=== PATIENT | female | born 1990 | race Caucasian/White ===

== ENCOUNTER 2016-12-20 13:52 | Inpatient (IN) | payer OTHER ==
[2016-12-20 21:08] VITALS: BMI 38.2
[2016-12-20] MEDS ORDERED: Ibuprofen 800 MG TAB PO PRN (22:00)
[2016-12-20] MEDS ORDERED: LR / Pitocin 40 units/1000 ml 40 UNITS/1,000 ML BAG IV SCH (22:00)
[2016-12-20] MEDS ORDERED: Misoprostol 200 MCG TAB RC PRN (22:00)
[2016-12-20] MEDS ORDERED: Lidocaine 1% (PF) 30 ML VIAL SC PRN (22:00)
[2016-12-20] MEDS ORDERED: LR 500 ML/Oxytocin 10 units 500 ML IV SCH ×2 (22:00)
[2016-12-20] MEDS ORDERED: Lactated Ringer's 1,000 ML IV SCH (22:09)
[2016-12-20] MEDS: Lactated Ringer's 1,000 ML IV SCH (22:31)
[2016-12-20] MEDS: Misoprostol 100 MCG TAB VAG SCH (22:31)
[2016-12-20 23:04] LABS: Hematocrit 36.4 % (36.0-47.0); Mean Platelet Volume 8.5 fL (7.4-10.4); Red Blood Cell (RBC) Count 4.05 mill/uL (4.20-5.40); White Blood Cell (WBC) Count 14.2 thou/uL (4.8-10.8)
[2016-12-21] MEDS: Misoprostol 100 MCG TAB VAG SCH ×5 (02:37→20:34)
[2016-12-21] MEDS: Lactated Ringer's 1,000 ML IV SCH ×2 (04:16→12:43)
[2016-12-21] MEDS ORDERED: Fentanyl 4 mcg/Marc 0.1% Cadd 100 ML ONE (07:49)
[2016-12-21] MEDS ORDERED: ePHEDrine/0.9% NaCl/PF SYRINGE 50 mg/10 ml SLOW IVP PRN (08:25)
[2016-12-21] MEDS ORDERED: Eucerin (Mineral Oil/Petrolatum,White) 30 gm Jar TOP PRN (08:25)
[2016-12-21] MEDS ORDERED: Acetaminophen 325 MG TAB PO PRN (08:25)
[2016-12-21] MEDS ORDERED: Naloxone HCl 0.4 mg/ml Vial IVP PRN ×2 (08:25)
[2016-12-21] MEDS ORDERED: Ondansetron HCl/PF 4 MG/2 ML Vial IVP PRN (08:25)
[2016-12-21] MEDS ORDERED: Lactated Ringer's 500 ML IV PRN (08:25)
[2016-12-21] MEDS ORDERED: Promethazine HCl 25 MG/ML VIAL IM PRN (08:25)
[2016-12-21] MEDS ORDERED: diphenhydrAMINE 50 MG/ML VIAL IVP PRN (08:25)
[2016-12-21] MEDS ORDERED: Fentanyl 4mcg/Marcaine 0.1% Cassette 100 ML EPIDURAL SCH (08:30)
[2016-12-21] MEDS ORDERED: Communication Order-Pharmacy FS SCH (08:30)
[2016-12-21] MEDS ORDERED: LR / Pitocin 40 units/1000 ml 1,000 ML ONE (12:30)
[2016-12-21] MEDS ORDERED: Lidocaine 1% (PF) 30 ML VIAL ONE (12:30)
--- NOTE | 2016-12-21 15:24 | OP ---
DATE OF DELIVERY 12/21/2016 PREOPERATIVE DIAGNOSES: Term intrauterine , elective induction of labor. POSTOPERATIVE DIAGNOSES: Term intrauterine , elective induction of labor as well as a secon d degree perineal laceration. PROCEDURE PERFORMED: Normal spontaneous vaginal delivery and laceration repair. SURGEON: Mayela Gillette M.D. ANESTHESIA: Epidural. ESTIMATED BLOOD LOSS: 300 mL BRIEF DELIVERY SUMMARY: This is a 26-year-old G4, P0, at 39-1/7 weeks' gestation, who presented for elective induction of labor last night. She received Cytotec x2 with good response. She was start ed on Pitocin this morning and underwent artificial rupture of membranes. She progressed well to co mplete and pushing. She delivered a live female infant, head OA. Mouth and nares were bulb suction ed at the perineum. There was no nuchal cord. Shoulders and body easily followed. It is notable t hat the cord was quite short. The infant was placed on mother's abdomen. The umbilical cord was do ubly clamped and cut and cord blood was sent for analysis. Infant Apgars were 8 at 1 minute and 9 a t 5 minutes. There was a second degree perineal laceration which was repaired in standard running f ashion using 2-0 Vicryl suture under epidural anesthesia with excellent hemostasis. Placenta was de livered spontaneously and intact with a 3-vessel umbilical cord. This was followed by a gush of blo od. This resolved with bimanual massage and evacuation of clot. Pitocin was hanging in the IV. Mo m and baby were left with the nurse in excellent condition attempting to breast feed.
[2016-12-21] MEDS ORDERED: Lanolin Ointment 7 GM TUBE TOP PRN (16:26)
[2016-12-21] MEDS ORDERED: Preparation H Ointment 28 GM TUBE PR PRN (16:26)
[2016-12-21] MEDS ORDERED: Bisacodyl 10 MG SUPP PR PRN (16:26)
[2016-12-21] MEDS ORDERED: Milk Of Magnesia 30 ML UDCUP PO PRN (16:26)
[2016-12-21] MEDS ORDERED: LR / Pitocin 40 units/1000 ml 1,000 ML IV SCH (16:26)
[2016-12-21] MEDS: HYDROcodone/Acetaminophen 5/325 mg Tablet PO PRN ×2 (17:24→22:32)
[2016-12-21] MEDS: Ferrous Sulfate 325 MG TAB PO SCH (17:24)
[2016-12-21] MEDS: Docusate Calcium (SURFAK) 240 MG CAP PO SCH (21:53)
[2016-12-21] MEDS: Ibuprofen 800 MG TAB PO SCH (21:54)
[2016-12-21] MEDS ORDERED: Bupivacaine 0.25% HCL 30 ML VIAL ONE (22:31)
[2016-12-21] MEDS ORDERED: Benzocaine/Menthol 20-0.5% 60 ML CAN TOP PRN (22:47)
[2016-12-22] MEDS: Ibuprofen 800 MG TAB PO SCH ×3 (05:46→21:57)
[2016-12-22] MEDS: Docusate Calcium (SURFAK) 240 MG CAP PO SCH ×2 (08:22→21:57)
[2016-12-22] MEDS: Ferrous Sulfate 325 MG TAB PO SCH ×2 (08:22→17:54)
--- NOTE | 2016-12-22 11:44 | PRG ---
DATE OF SERVICE: 12/22/2016 PROGRESS NOTE PRIMARY INFORMATICIST: Dr. Mayela Gillette M.D. SUBJECTIVE: The patient is a 26-year-old female who is day 1, status post a term spontan eous vaginal delivery. The patient this morning reports she is ambulating well, tolerating p.o., vo iding on her own and having decreased lochia. PHYSICAL EXAMINATION: VITAL SIGNS: Today, blood pressure is 120/65, temperature is 97.6, pulse of 89, respiratory rate of 20. GENERAL: She appears to be in no acute distress. She is alert and oriented, and cooperative and pl easant to interact with. HEAD: Normocephalic, atraumatic. ABDOMEN: Fundus is firm at the umbilicus -1. EXTREMITIES: Nontender with symmetrical edema. ASSESSMENT AND PLAN: The patient is a 26-year-old female day 1, status post a term spont aneous vaginal delivery. We will continue care. Anticipate discharge tomorrow.
[2016-12-22] MEDS: HYDROcodone/Acetaminophen 5/325 mg Tablet PO PRN (12:21)
[2016-12-23] MEDS: Ibuprofen 800 MG TAB PO SCH ×2 (06:09→14:20)
[2016-12-23] MEDS: Ferrous Sulfate 325 MG TAB PO SCH (09:19)
[2016-12-23] MEDS: Docusate Calcium (SURFAK) 240 MG CAP PO SCH (09:24)
[2016-12-23 10:25] VITALS: BP 126/75; TEMP 97.7
--- NOTE | 2016-12-23 12:49 | DIS ---
DATE OF ADMISSION: 12/23/2016 DATE OF DISCHARGE: 12/23/2016 ( day #2). LOCATION: Room #332 on 3 [facility], [place]. This is a patient of Dr. Mayela Gillette. PRIMARY DIAGNOSIS: Status post vaginal delivery at 39 weeks. HOSPITAL COURSE: In brief, this is a patient of Dr. Mayela Gillette who is a 4, now para 1, who presented with induction of labor at patient's request. She underwent Cytotec and Pitocin and unde rwent spontaneous vaginal dated 12/21/2016 at 1410. I evaluated the patient on day #2, which was 12/23/2013. When I evaluated the patient, her vital signs showed a temperature range of 97.8-98.1, pulse was in the 70s-90s, respirations were 16-20 unlabored, blood pressure ranged fr om 130/76-123/61. On laboratory assessment, patient had an initial hepatitis B surface antigen and syphilis serologies that were both negative and hematocrit value initially on admission was 36.4. O n physical exam, there was no evidence of uterine tenderness, or abnormal vaginal bleeding. Abdomen was soft and nontender. ASSESSMENT: On postoperative day #2, the patient was clinically stable, status post vaginal deliver y and was cleared for discharge on 12/23/2016. DISCHARGE MEDICATIONS: Include Motrin 600 mg 1 p.o. q.6 hours p.r.n. pain. DISCHARGE INSTRUCTIONS: She was told to follow up with Dr. Mayela Gillette per routine care. There was no evidence of complication at the time of discharge.
== END 2016-12-23 17:00 | disposition home or self-care (01) | DRG 775 ==
LOC: L&D 20:13 → 3SW 12-21 16:31
PROVIDERS: ADMIT Family Medicine; ATTEND Family Medicine
PROC: 3E0P3VZ Introduction of Hormone into Female Reproductive, Percutaneous Approach (ICD-10-PCS; 2016-12-20)
PROC: 10907ZC Drainage of Amniotic Fluid, Therapeutic from Products of Conception, Via Natural or Artificial Opening (ICD-10-PCS; principal; 2016-12-21)
PROC: 10E0XZZ Delivery of Products of Conception, External Approach (ICD-10-PCS; 2016-12-21)
PROC: 0KQM0ZZ Repair Perineum Muscle, Open Approach (ICD-10-PCS; 2016-12-21)
PROC: 3E0P7VZ Introduction of Hormone into Female Reproductive, Via Natural or Artificial Opening (ICD-10-PCS; 2016-12-21)
DX: O70.1 Second degree perineal laceration during delivery (principal); Z37.0 Single live birth; Z3A.39 39 weeks gestation of pregnancy
CPT/HCPCS: 36415; 85027; 86780; 87340; J0595; J1200; J2001; J7120; S0020

== ENCOUNTER 2018-10-06 09:38 | Emergency (ER) | payer OTHER ==
[2018-10-06 10:10] LABS: #Basophils 0.1 thou/uL (0.0-0.2); #Eosinphils 0.3 thou/uL (0.0-0.7); #Lymphocytes 3.7 thou/uL (1.20-3.40); #Monocytes 0.7 thou/uL (0.11-0.59); %Basophils 1.1 % (0.0-1.0); %Eosinophils 2.7 % (0.0-10.0); %Lymphocytes 34.2 % (21.0-51.0); %Monocytes 6.3 % (0.0-10.0); %Neutrophils 55.6 % (42.0-75.0); Hemoglobin 12.8 g/dL (12.0-16.0); Mean Corpuscular HGB CONC 35.1 g/dL (32.0-36.0); Mean Corpuscular Hemoglobin 29.7 pg (27.0-31.0); Mean Corpuscular Volume 84.8 fL (78.0-98.0); Mean Platelet Volume 7.1 fL (7.4-10.4); Platelet Count 371 thou/uL (130-400); RBC Distribution Width 12.1 % (11.5-14.5); White Blood Cell (WBC) Count 10.8 thou/uL (4.8-10.8)
--- NOTE | 2018-10-06 11:53 | ULT ---
EXAM: Pelvic ultrasound: Transabdominal and endovaginal ultrasound pelvis performed. INDICATIONS: Early with vaginal spotting. History of miscarriage. COMPARISON: None. FINDINGS: A gestational sac is identified. A pole is identified. [place]-rump length indicates a 6 week 4 day gestational age. heart rate is recorded at 131 bpm. Yolk sac identified. A subtle hypoechoic area seen posterior to the gestational sac with Doppler is noted by the technolog ist. This may represent a small area of subchorionic hemorrhage but is not definitely confirmed. Right ovarian cyst is seen measuring 1.5 cm. Ovaries otherwise unremarkable. Color Doppler with spect ral analysis shows blood flow to both ovaries. IMPRESSION: 1. Viable intrauterine . Gestational age by ultrasound is 6 weeks 4 days. 2. Question small subchorionic hemorrhage as described above. Follow-up recommended.
== END 2018-10-06 12:05 | disposition home or self-care (01) ==
LOC: SCSER 09:38
DX: O20.0 Threatened abortion (principal); O99.341 Other mental disorders complicating pregnancy, first trimester; F41.9 Anxiety disorder, unspecified; Z79.899 Other long term (current) drug therapy; Z3A.01 Less than 8 weeks gestation of pregnancy
CPT/HCPCS: 76856; 84144; 84702; 85025

== ENCOUNTER 2019-05-12 04:10 | Inpatient (IN) | payer OTHER ==
[2019-05-12 04:53] VITALS: BMI 41.3
[2019-05-12] MEDS ORDERED: Fentanyl 4 mcg/Bup 0.1% Cadd 100 ML ONE (05:26)
[2019-05-12 05:36] LABS: Mean Corpuscular HGB CONC 33.1 g/dL (32.0-36.0); Mean Corpuscular Hemoglobin 28.3 pg (27.0-31.0); Mean Corpuscular Volume 85.5 fL (78.0-98.0); Mean Platelet Volume 8.7 fL (7.4-10.4); Platelet Count 289 thou/uL (130-400); RBC Distribution Width 13.6 % (11.5-14.5); Red Blood Cell (RBC) Count 4.61 mill/uL (4.20-5.40); White Blood Cell (WBC) Count 13.4 thou/uL (4.8-10.8)
[2019-05-12] MEDS ORDERED: Lidocaine 1% (PF) 30 ML VIAL ONE (06:14)
[2019-05-12] MEDS ORDERED: NS / Oxytocin 40 units/1000ml 1,000 ML ONE (06:14)
[2019-05-12 06:16] LABS: Syphilis Antibody Nonreactive (Nonreactive); Syphilis Antibody Index 0.11 S/CO (<1.00 Non-Reactive)
[2019-05-12 06:17] LABS: HBSAg Index 0.15 S/CO (0-0.99); Hep B Surf Ag Non-Reactive S/CO (NonReactive)
[2019-05-12] MEDS: NS / Oxytocin 40 units/1000ml 1,000 ML IV PRN ×2 (06:38→07:43)
[2019-05-12] MEDS ORDERED: Ibuprofen 800 MG TAB PO PRN (06:53)
[2019-05-12] MEDS ORDERED: HYDROcodone/Acetaminophen 5/325 mg Tablet PO PRN (06:53)
[2019-05-12] MEDS ORDERED: Lidocaine 1% (PF) 30 ML VIAL SC PRN (06:53)
[2019-05-12] MEDS ORDERED: Misoprostol 200 MCG TAB PR PRN (06:53)
[2019-05-12] MEDS ORDERED: Carboprost 250 MCG/ML AMP IM PRN (06:53)
[2019-05-12] MEDS ORDERED: Methylergonovine 0.2 MG/ML VIAL IM PRN (06:53)
[2019-05-12 07:32] LABS: Actual Bicarbonate (HCO3a) 22.7 mEq/L (22-28); Base Excess (BEa) -4.3 mEq/L (-2.0 to +3.0)
[2019-05-12 07:35] LABS: Actual Bicarbonate (HCO3v) 22 mEq/L (22-28); Base Excess -4.3 mEq/L (-2.0 to +3.0); pH (Cord, venous) 7.32 (7.32-7.43)
[2019-05-12] MEDS ORDERED: Milk Of Magnesia 30 ML UDCUP PO PRN (08:57)
[2019-05-12] MEDS ORDERED: Bisacodyl 10 MG SUPP PR PRN (08:57)
[2019-05-12] MEDS ORDERED: Adacel (T-DAP) 0.5 ML SYRINGE IM ONE (08:57)
[2019-05-12] MEDS ORDERED: hydrALAZINE 20 MG/ML VIAL SLOW IVP PRN (08:57)
--- NOTE | 2019-05-12 08:59 | PDOC.LDHP ---
Labor and Delivery H&P Chief complaint: contractions, loss of fluid (SROM at home at 0400) HPI: at 38 weeks with SROM at 0400. CTX started after that. Quickly became intense. Presented to L&D in active labor. Current gestational age (weeks): 38 Due date: 05/21/19 Dating criteria: last menstrual period, first trimester ultrasound Grav: 5 Para: 1 OB History Details: H/O recurrent miscarriage prior to first delivery. Current complications: none Abnormal US findings: No Current medications: pre-khloe vitamins Previous surgical history: none Allergies/Adverse Reactions: Allergies Allergy/AdvReac Type Severity Reaction Status Date / Time cefaclor [From [facility]] Allergy Mild Rash Verified 05/12/19 04:42 Social history: none - Physical Exam Vital signs reviewed and normal: yes General: breathing through contractions Heart: RRR Lungs: CTAB Abdomen: gravid Extremeties: no edema FHT: category 1 - Vaginal Exam cm dilated: 5 Effacement: 100% Station: -1 - OB Labs Blood type: A RH: positive Antibody Screen: negative HIV: negative RPR: negative HEPSAg: negative 1 hour GCT: negative GBS: negative Urine drug screen: not done Rubella: immune - Assessment L&D Assessment: term patient in labor - Plan Plan: admit to L&D (Patient rapidly became complete. Unable to get epidural. See delivery note for details.)
[2019-05-12] MEDS ORDERED: NS / Oxytocin 40 units/1000ml 1,000 ML IV SCH (09:00)
--- NOTE | 2019-05-12 09:04 | PDOC.OPDEL ---
OB Operative/Delivery Note Delivery Dr/Surgeon: Nain Pre-Delivery Diagnosis: active labor Procedure/Post Delivery Dx: spontaneous vaginal delivery (Head OA, no nuchal cord, shoulder dystocia relieved with McRobert's, suprapubic pressure, Wood's screw maneuver, left shoulder delivered first. Body easily followed. Cord doubly clamped and cut. Infant handed to waiting Richard team.) Weeks gestation: 38 Anesthesia: local - Findings A Sex: female Weight: 8 lb 8 oz - Additional Findings/Plan Placenta delivered: spontaneous Repaired Obstetrical Laceration: 1st degree (Repaired with 3.0 vicryl under local anesthesia in standard running fashion.) Estimated blood loss: 350 Post delivery plan: routine recovery
[2019-05-12] MEDS: HYDROcodone/Acetaminophen 5/325 mg Tablet PO PRN ×2 (11:57→15:51)
[2019-05-12] MEDS: Ibuprofen 800 MG TAB PO SCH ×2 (14:34→21:12)
[2019-05-12] MEDS: Docusate Calcium (SURFAK) 240 MG CAP PO SCH ×2 (15:07→21:12)
[2019-05-12] MEDS: Ferrous Sulfate 325 MG TAB PO SCH (15:07)
[2019-05-13] MEDS: HYDROcodone/Acetaminophen 5/325 mg Tablet PO PRN (01:28)
[2019-05-13] MEDS: Ibuprofen 800 MG TAB PO SCH ×3 (05:01→20:47)
[2019-05-13 05:31] LABS: Hemoglobin 10.5 g/dL (12.0-16.0); Mean Corpuscular HGB CONC 33.7 g/dL (32.0-36.0); Mean Corpuscular Hemoglobin 29.3 pg (27.0-31.0); Mean Corpuscular Volume 86.8 fL (78.0-98.0); Mean Platelet Volume 8.5 fL (7.4-10.4); Platelet Count 262 thou/uL (130-400); RBC Distribution Width 13.7 % (11.5-14.5); Red Blood Cell (RBC) Count 3.58 mill/uL (4.20-5.40); White Blood Cell (WBC) Count 16.4 thou/uL (4.8-10.8)
[2019-05-13] MEDS: Docusate Calcium (SURFAK) 240 MG CAP PO SCH ×2 (10:39→20:47)
[2019-05-13] MEDS: Ferrous Sulfate 325 MG TAB PO SCH ×2 (10:39→17:08)
--- NOTE | 2019-05-13 15:16 | PDOC.PP ---
Post Progress Note Post Day #: 1 Subjective: Doing well. baby improving in NICU. well. Pain better than after delivery, just a little sore. PO intake tolerated: yes Flatus: yes Ambulation: yes Vital Signs (12 hours) Temp Pulse Resp BP Pulse Ox 05/13/19 07:44 98.8 F 111 H 20 130/86 98 05/13/19 04:00 98.5 F 87 16 124/77 Weight Weight 198 lb - Physical Examination General: NAD Cardiovascular: no m/r/g, RRR Respiratory: clear to auscultation bilaterally, non-labored breathing Abdominal: + bowel sounds, lochia, no distention, appropriately TTP (Uterus sore , no tenderness) Extremities: negative homans (B) Neurological: no gross focal deficits Psychiatric: A&Ox3 Result Diagrams: 05/13/19 05:13 Additional Labs: Post Labs Blood Type A POSITIVE 05/12/19 05:21 Hep Bs Antigen Non-Reactive S/CO (NonReactive) 05/12/19 05:21 (1) Spontaneous vaginal delivery Code(s): O80 - ENCOUNTER FOR FULL-TERM UNCOMPLICATED DELIVERY Status: Acute - Assessment/Plan Routine PP care Continue to breastfeed Likely D/C tomorrow May B&B if baby needs to remain in NICU longer - doing well right now
[2019-05-14] MEDS: Ibuprofen 800 MG TAB PO SCH ×2 (05:31→15:52)
[2019-05-14 07:28] VITALS: BP 133/72; TEMP 98.1
[2019-05-14] MEDS: Docusate Calcium (SURFAK) 240 MG CAP PO SCH (09:38)
[2019-05-14] MEDS: Ferrous Sulfate 325 MG TAB PO SCH ×2 (09:38→16:16)
--- NOTE | 2019-05-14 12:21 | PDOC.PP ---
Post Progress Note Post Day #: 2 Subjective: Doing well. No c/o. Feeling well. Pain controlled. PO intake tolerated: yes Flatus: yes Ambulation: yes Vital Signs (12 hours) Temp Pulse Resp BP Pulse Ox 05/14/19 08:45 98 05/14/19 07:28 98.1 F 82 20 133/72 98 05/14/19 05:00 95 Weight Weight 198 lb - Physical Examination General: NAD Cardiovascular: no m/r/g, RRR Respiratory: clear to auscultation bilaterally, non-labored breathing Abdominal: + bowel sounds, lochia, no distention, appropriately TTP Extremities: negative homans (B) Neurological: no gross focal deficits Psychiatric: A&Ox3 Result Diagrams: 05/13/19 05:13 Additional Labs: Post Labs Blood Type A POSITIVE 05/12/19 05:21 Hep Bs Antigen Non-Reactive S/CO (NonReactive) 05/12/19 05:21 (1) Spontaneous vaginal delivery Code(s): O80 - ENCOUNTER FOR FULL-TERM UNCOMPLICATED DELIVERY Status: Acute - Assessment/Plan Routine PP care D/C to B&B later today Baby still in NICU - probably one more day F/U in 6 weeks.
== END 2019-05-14 19:00 | disposition home or self-care (01) | DRG 807 ==
LOC: L&D/OP 04:10 → L&D 05:20 → 3SW 10:01
PROVIDERS: ADMIT Family Medicine; ATTEND Family Medicine
PROC: 10E0XZZ Delivery of Products of Conception, External Approach (ICD-10-PCS; principal; 2019-05-12)
PROC: 0HQ9XZZ Repair Perineum Skin, External Approach (ICD-10-PCS; 2019-05-12)
DX: O66.0 Obstructed labor due to shoulder dystocia (principal); Z37.0 Single live birth; Z3A.38 38 weeks gestation of pregnancy; O70.0 First degree perineal laceration during delivery
CPT/HCPCS: 36415; 82805; 85027; 86780; 86850; 86900; 86901; 87340; 99285; J2001